=== PATIENT | male | born 1970 | race Caucasian/White ===

== ENCOUNTER 2018-03-03 16:31 | Emergency (ER) | payer BC ==
[~2018-03-03] VITALS: Ht 185.4 cm; Wt 108.9 kg
[~2018-03-03 16:31] MED LIST: NOHOMEMEDICATIONS; PERCOCET 5-3251 EACH PO; TAMSULOSIN HCL0.4 MG PO; ZOFRAN 4 MG ORAL4 MG PO
[2018-03-03] MEDS ORDERED: ASPIR 8181 MG PO (16:48)
[2018-03-03] MEDS ORDERED: ATORVASTATIN CA20 MG PO (16:48)
[2018-03-03] MEDS ORDERED: BYSTOLIC2.5 MG PO (16:48)
[2018-03-03 17:10] LABS: ABSOLUTE BASOPHILS 0.1 thou/uL (0.0-0.2); ABSOLUTE EOSINOPHILS 0.6 thou/uL (0.0-0.7); ABSOLUTE LYMPHOCYTES 2.2 thou/uL (0.8-5.3); ABSOLUTE MONOCYTES 0.6 thou/uL (0.0-1.2); ABSOLUTE NEUTROPHILS 5.2 thou/uL (1.6-8.1); BASOPHILS 0.9 %; HEMATOCRIT 44.5 % (42.0-52.0); LYMPHOCYTES 25.2 %; MCH 31.7 pg (26.0-34.0); MCHC 33.6 g/dL (28.0-37.0); MCV 94.3 fL (80.0-100.0); MONOCYTES 7.3 %; MPV 8.8 fl. (7.2-11.1); NUCLEATED RBCS 0 /100WBC; PLATELET COUNT* 245 thou/uL (150-400); POLYS 59.6 %; RBC 4.72 mil/uL (4.50-6.00); RDW-CV 12.9 % (10.5-14.5); WBC 8.8 thou/uL (4.0-11.0)
[2018-03-03 17:18] LABS: CALCIUM 8.8 mg/dL (8.5-10.1); CREATININE 1.3 mg/dL (0.6-1.3); POTASSIUM 3.8 mmol/L (3.5-5.1)
[2018-03-03 17:22] LABS: ALBUMIN 4.1 g/dL (3.4-5.0); TOTAL BILIRUBIN 0.3 mg/dL (<0.1-1.0); TOTAL PROTEIN 7.8 g/dL (6.4-8.2)
[2018-03-03 18:38] LABS: URINE BILIRUBIN NEGATIVE (Negative); URINE BLOOD 3+ (Negative); URINE CLARITY CLEAR; URINE COLOR YELLOW; URINE GLUCOSE-RANDOM NEGATIVE (Negative); URINE KETONES NEGATIVE (Negative); URINE LEUKOCYTES NEGATIVE (Negative); URINE NITRITE NEGATIVE (Negative); URINE PROTEIN NEGATIVE (Negative); URINE UROBILINOGEN 0.2 E.U./dl (0.2-1.0)
[2018-03-03 18:48] LABS: CRYSTALS None Seen /LPF (None Seen); MUCUS None Seen strn/LPF (None Seen); SQUAMOUS NONE SEEN /LPF (0-3); URINE WBC 0-5 Rare /HPF (0-5)
[2018-03-03 18:49] LABS: BACTERIA None Seen /HPF (None Seen); CASTS None Seen /LPF (None Seen)
[2018-03-03] MEDS ORDERED: NORCO 5-325 TA1 EACH PO (19:30)
[2018-03-03] MEDS ORDERED: FLOMAX0.4 MG PO (19:30)
[2018-03-03] MEDS ORDERED: IBUPROFEN 800800 M1 PO (19:30)
[2018-03-03] MEDS ORDERED: ONDANSETRON HCL4 M2 PO (19:30)
[2018-03-03 19:43] VITALS: BP 121/75
== END 2018-03-03 19:44 | disposition home or self-care (01) ==
LOC: M.ERS 16:31
PROVIDERS: Nurse Practitioner Family
DX: N13.2 Hydronephrosis with renal and ureteral calculous obstruction (principal); Z87.442 Personal history of urinary calculi; E78.00 Pure hypercholesterolemia, unspecified

== ENCOUNTER 2018-03-06 05:29 | Inpatient (IN) | payer BC ==
[~2018-03-06] VITALS: Ht 185.4 cm; Wt 108.9 kg
[~2018-03-06 05:29] MED LIST changes: +ASPIR 8181 MG PO; +ATORVASTATIN CA20 MG PO; +BYSTOLIC2.5 MG PO; +FLOMAX0.4 MG PO; +IBUPROFEN 800800 M1 PO; +NORCO 5-325 TA1 EACH PO; +ONDANSETRON HCL4 M2 PO
[2018-03-06 05:33] VITALS: BP 170/100
[2018-03-06 05:55] LABS: ABSOLUTE BASOPHILS 0.1 thou/uL (0.0-0.2); ABSOLUTE EOSINOPHILS 0.3 thou/uL (0.0-0.7); ABSOLUTE LYMPHOCYTES 2.2 thou/uL (0.8-5.3); ABSOLUTE MONOCYTES 1.6 thou/uL (0.0-1.2); ABSOLUTE NEUTROPHILS 10.4 thou/uL (1.6-8.1); BASOPHILS 0.7 %; EOSINOPHILS 2.4 %; HEMATOCRIT 38.9 % (42.0-52.0); HEMOGLOBIN 13.3 gm/dL (14.0-18.0); LYMPHOCYTES 14.9 %; MCH 31.5 pg (26.0-34.0); MCHC 34.1 g/dL (28.0-37.0); MCV 92.6 fL (80.0-100.0); MONOCYTES 11.1 %; MPV 9.1 fl. (7.2-11.1); NUCLEATED RBCS 0 /100WBC; PLATELET COUNT* 219 thou/uL (150-400); POLYS 70.9 %; RDW-CV 12.8 % (10.5-14.5); WBC 14.6 thou/uL (4.0-11.0)
[2018-03-06 06:07] LABS: CALCIUM 8.5 mg/dL (8.5-10.1); CREATININE 1.8 mg/dL (0.6-1.3); POTASSIUM 4.2 mmol/L (3.5-5.1)
[2018-03-06 06:08] LABS: URINE BILIRUBIN NEGATIVE (Negative); URINE BLOOD 1+ (Negative); URINE CLARITY CLEAR; URINE COLOR YELLOW; URINE GLUCOSE-RANDOM NEGATIVE (Negative); URINE KETONES NEGATIVE (Negative); URINE LEUKOCYTES-REFLEX NEGATIVE (Negative); URINE NITRITE-REFLEX NEGATIVE (Negative); URINE PROTEIN NEGATIVE (Negative); URINE UROBILINOGEN 0.2 E.U./dl (0.2-1.0)
[2018-03-06 06:11] LABS: ALBUMIN 3.7 g/dL (3.4-5.0); TOTAL BILIRUBIN 0.4 mg/dL (<0.1-1.0); TOTAL PROTEIN 7.5 g/dL (6.4-8.2)
[2018-03-06 06:23] LABS: BACTERIA-REFLEX None Seen /HPF (None Seen); CASTS None Seen /LPF (None Seen); CRYSTALS None Seen /LPF (None Seen); MUCUS None Seen strn/LPF (None Seen); SQUAMOUS NONE SEEN /LPF (0-3); URINE RBC 0-2 Rare /HPF (0-2); URINE WBC-REFLEX None Seen /HPF (0-5)
--- NOTE | 2018-03-06 06:36 | NUR ---
PATIENT PACING, STATES THAT IT HELPS TO MOVE AROUND.
[2018-03-06 08:35] VITALS: BP 144/80
[2018-03-06 09:00] VITALS: BP 136/72
[2018-03-06 16:03] VITALS: BP 137/80
--- NOTE | 2018-03-06 16:17 | NUR ---
PATIENT REMAINS ALERT AND ORIENTED. PAIN CONTROLLED WITH PO/IV MEDS. RATES PAIN 2/10. DENIES NAUSEA. TOLERTING DIET. STRAINING URINE. UP AD BARBARA. NPO AFTER MIDINGHT FOR CYSTO TOMORROW. IVF INFUSING ORDERED. CALL LIGHT WITHIN REACH. WILL CONTINUE TO MONITOR.
--- NOTE | 2018-03-06 16:35 | NUR ---
PER DR. CABRERA PATIENT IS MEDICALLY CLEAR FOR SURGERY TOMORROW.
[2018-03-07] VITALS: BP 159/94
[2018-03-07 00:32] VITALS: BP 159/94
[2018-03-07 03:44] LABS: HEMATOCRIT 32.7 % (42.0-52.0); MCH 31.9 pg (26.0-34.0); MCHC 34.3 g/dL (28.0-37.0); MPV 9.8 fl. (7.2-11.1); RBC 3.52 mil/uL (4.50-6.00); RDW-CV 12.4 % (10.5-14.5); WBC 11.8 thou/uL (4.0-11.0)
[2018-03-07 03:46] LABS: CREATININE 1.7 mg/dL (0.6-1.3); MAGNESIUM 1.9 mg/dL (1.8-2.4); POTASSIUM 4.2 mmol/L (3.5-5.1)
[2018-03-07 03:48] LABS: HEMOGLOBIN 11.2 gm/dL (14.0-18.0)
--- NOTE | 2018-03-07 04:50 | NUR ---
PATIENT HAS REMAINED ALERT AND ORIENTED X 4 THROUGHOUT THE SHIFT AND RESTING QUIETLY ON HOURLY ROUNDS. PATIENT STRAINING URINE. NO STONES RETRIEVED OF THIS WRITING. NPO AT MIDNIGHT. MEDICATED FOR PAIN WITH BOTH ORAL AND IV OPTIONS UTILIZED TO GOOD EFFECT. VITAL SIGNS STABLE. MEDS/IVF'S/ANTIBIOTICS PER ORDERS. PATIENT AWARE OF POSSIBLE PROCEDURE THIS AM. CONTINUE TO MONITOR.
[2018-03-07 07:40] VITALS: BP 144/64
--- NOTE | 2018-03-07 07:42 | NUR ---
pt transferred to preop at this time
[2018-03-07] MEDS ORDERED: HYDROCODONE-AP1 EAC6 PO (10:00)
[2018-03-07] MEDS ORDERED: LEVSIN0.125 MG SUBLING (10:01)
[2018-03-07 10:02] VITALS: BP 158/94
[2018-03-07] MEDS ORDERED: PHENAZOPYRIDIN200 M2 PO (10:02)
--- NOTE | 2018-03-07 10:02 | NUR ---
PATIENT RETURNED FROM PACU AT THIS TIME. ALERT AND ORIENTED. DENIES PAIN. VOIDED PER URINAL. TOLERATED LIQUIDS. SCD'S IN PLACE. VITALS CHARTED. AT BEDSIDE. WILL CONTINUE TO MONITOR.
[2018-03-07 12:59] VITALS: BP 158/94
--- NOTE | 2018-03-07 13:10 | NUR ---
PATIENT DISCHARED TO HOME AT THIS TIME. IV REMOVED. STRAINER AND URINAL SENT WITH PATIENT. PYRIDIUM USED FOR PAINFUL URINATION. PATIENT ABLE TO VOID 600MLS OF PINK URINE PRIOR TO DC. PATIENT AND SPOUSE VERBALIZE UNDERSTANDING OF DC INSTRUCTIONS.
--- NOTE | 2018-03-07 13:25 | EKG ---
[place] [address] ELECTROCARDIOGRAM REPORT Name: MARY HAND Room: [address] IN M.R.#: [id number] Admission: 03/06/18 Attend Phys: Albaro Styles MD Discharge: 03/07/18 Date of : 66 Report #: [id number] THIS REPORT FOR: //name// [facility] Test Date: 2018-03-06 Test Time: 17:08:34 Pat Name: MARY HAND Department: Room: [address] Gender: M [employer] Consultant: : [id number] Requested By: Leela Kam Order Number: [id number] MD: Nick Piper Measurements Intervals [place] Rate: 69 P: 60 MD: 213 QRS: -27 QRSD: 87 T: 8 QT: 389 QTc: 417 Interpretive Statements Sinus rhythm Prolonged MD interval Inferior infarct, old No previous ECG available for comparison Electronically Signed On 03-07-2018 13:25:25 CDT by Nick Piper [email or web address] <ELECTRONICALLY SIGNED> By: Nick Piper MD, [facility] 03/07/18 1325 07 07 Nick Piper MD, FACC /EPI
--- NOTE | 2018-03-11 15:49 | OP ---
[address] [address] OPERATIVE REPORT Name: MARY HAND Room: [address] IN M.R.#: [id number] Admission: 03/06/18 Attend Phys: Albaro Styles MD Discharge: 03/07/18 Date of : 66 Report #: [id number] THIS REPORT FOR: //name// CC: [facility] MANDO AQUINOSIMONE Styles DATE OF SERVICE: 03/07/2018 PREOPERATIVE DIAGNOSIS: Right ureteral stone. POSTOPERATIVE DIAGNOSIS: Right ureteral stone. PROCEDURE: Cystourethroscopy, right retrograde pyelogram, right ureteroscopy and right ureteral stent placement (6-Yemeni x 26 cm). SURGEON: Leela Kam MD ANESTHESIA: General. ESTIMATED BLOOD LOSS: None. COMPLICATIONS: None. SPECIMENS: None. INDICATIONS FOR PROCEDURE: The patient is a 47-year-old male who presented with a 5 mm right ureteral stone. This is his second ER visit. He was also noted to have some acute kidney injury with a creatinine of 1.8. His creatinine is only improved to 1.7. He continues to have pain. We proceed with intervention given this is his second ER visit in his renal dysfunction. Risks of procedure were discussed including but not limited to infection, bleeding, injury to the urethra, bladder, ureters, need for secondary procedures, stent pain, cardiopulmonary complications. He voiced understanding and wished to proceed. DESCRIPTION OF PROCEDURE: After informed consent was obtained, the patient was taken back to the operating suite and placed supine. After induction of general anesthesia, he was placed in dorsal lithotomy position, genitalia prepped and draped in standard fashion. Rigid cystoscopy was performed. Urethra was normal, no strictures. Prostate had some bilobar hyperplasia but there was no coaptation and no obstruction. Bladder was carefully inspected. There were no mucosal lesions or erythema. Ureteral orifices were orthotopic in position. Retrograde was performed on the right with a cone tipped catheter. This revealed a filling defect in the mid ureter consistent with the known stone. Threaded a sensor wire up into the kidney past the stone with only minor difficulty. Retrograde was again performed with a dual lumen catheter, [place] [address] OPERATIVE REPORT Name: MARY HAND Room: [address]#: [id number] Admission: 03/06/18 Attend Phys: Albaro Styles MD Discharge: 03/07/18 Date of : 66 Report #: [id number] confirming placement of the wire. The stone was low enough. I thought I could potentially reach it with the rigid ureteroscope. Therefore, the distal ureter was dilated with the 09/21 ureteral access sheath; however, this would not pass the level of the pelvic outlet due to some narrowing. The rigid ureteroscope was advanced up into the ureter, but it would not reach the stone. Therefore, a second wire was placed and this was backed out. The 09/21 sheath was threaded over one of the wires, but again would not thread past the level of the pelvic outlet due to ureteral narrowing. The sheath was left in place in the distal ureter. Flexible ureteroscope was advanced up into the ureter. I could not reach the stone due to a stricture that was just below the level of the stone. Retrograde was performed through the scope and this confirmed that. The stone was just beyond my reach beyond that area of stricture. Therefore, decided the best thing would be to place a stent and come back. The scope was backed out along with the sheath. There was no injury from the sheath. The wire was backloaded through the cystoscope and a 6-Yemeni x 26-cm double-J stent was threaded over the wire. The proximal curl was initially in the upper pole, but this was adjusted in the renal pelvis using flexible graspers distally and good placement of the stent was seen at the end of the case. I should also note that initially when the wire was placed there was no purulence, but he did have quite a bit of debris and what looked like old blood product effluxing due to his obstruction. The bladder was then drained and the scope was removed. A 5 mL of lidocaine jelly were placed per urethra for local anesthesia. A 60 mg B and O suppository was placed per rectum for postoperative discomfort. He was awoken, extubated and taken to recovery in satisfactory condition. He will be admitted back to the floor and will plan on a second look ureteroscopy in a week or two after he is dilated with the stent. <ELECTRONICALLY SIGNED> By: Leela Kam MD 03/11/18 1549 0915 [id number] Kam MD /nt
== END 2018-03-07 13:17 | disposition home or self-care (01) | DRG 693 ==
LOC: M.ERS 05:29 → M.TBA-ER 06:40 → M.ORTHSURG 08:30
PROVIDERS: Family Medicine; ADMIT Internal Medicine
PROC: 0T768DZ Dilation of Right Ureter with Intraluminal Device, Via Natural or Artificial Opening Endoscopic (ICD-10-PCS; principal; 2018-03-07)
PROC: BT1D1ZZ Fluoroscopy of Right Kidney, Ureter and Bladder using Low Osmolar Contrast (ICD-10-PCS; principal; 2018-03-07)
DX: N20.1 Calculus of ureter (principal); N17.0 Acute kidney failure with tubular necrosis; E78.00 Pure hypercholesterolemia, unspecified; I25.10 Atherosclerotic heart disease of native coronary artery without angina pectoris; F17.200 Nicotine dependence, unspecified, uncomplicated; I25.2 Old myocardial infarction; Z95.5 Presence of coronary angioplasty implant and graft; Z79.899 Other long term (current) drug therapy; Z79.82 Long term (current) use of aspirin

== ENCOUNTER 2020-03-31 07:53 | Emergency (ER) | payer BC ==
[~2020-03-31] VITALS: Ht 185.4 cm; Wt 106.6 kg
[~2020-03-31 07:53] MED LIST changes: +HYDROCODONE-AP1 EAC6 PO; +LEVSIN0.125 MG SUBLING; +PHENAZOPYRIDIN200 M2 PO
[2020-03-31 08:25] LABS: ABSOLUTE BASOPHILS 0.1 thou/uL (0.0-0.2); ABSOLUTE EOSINOPHILS 0.9 thou/uL (0.0-0.7); ABSOLUTE LYMPHOCYTES 3.5 thou/uL (0.8-5.3); ABSOLUTE MONOCYTES 0.8 thou/uL (0.0-1.2); BASOPHILS 0.8 %; EOSINOPHILS 9.3 %; HEMATOCRIT 42.4 % (42.0-52.0); HEMOGLOBIN 14.8 gm/dL (14.0-18.0); LYMPHOCYTES 38.3 %; MCH 32.7 pg (26.0-34.0); MCV 93.2 fL (80.0-100.0); MONOCYTES 8.4 %; MPV 8.8 fl. (7.2-11.1); NUCLEATED RBCS 0 /100WBC; PLATELET COUNT* 251 thou/uL (150-400); POLYS 43.2 %; RBC 4.54 mil/uL (4.50-6.00); RDW-CV 12.5 % (10.5-14.5); WBC 9.2 thou/uL (4.0-11.0)
[2020-03-31 08:36] LABS: CALCIUM 8.3 mg/dL (8.5-10.1); CREATININE 1.1 mg/dL (0.6-1.3); POTASSIUM 3.7 mmol/L (3.5-5.1)
[2020-03-31 08:40] LABS: ALBUMIN 3.8 g/dL (3.4-5.0); TOTAL BILIRUBIN 0.4 mg/dL (<0.1-1.0); TOTAL PROTEIN 7.2 g/dL (6.4-8.2)
[2020-03-31] MEDS ORDERED: FLOMAX0.4 MG PO (09:26)
[2020-03-31] MEDS ORDERED: ZOFRAN ODT4 MG DISSOLVE (09:26)
[2020-03-31] MEDS ORDERED: NORCO 5-325 TA1 EAC1 PO (09:26)
[2020-03-31] MEDS ORDERED: IBUPROFEN 800800 M1 PO (09:26)
[2020-03-31 09:56] LABS: URINE BILIRUBIN NEGATIVE (Negative); URINE BLOOD 3+ (Negative); URINE CLARITY CLEAR; URINE COLOR YELLOW; URINE GLUCOSE-RANDOM NEGATIVE (Negative); URINE KETONES NEGATIVE (Negative); URINE LEUKOCYTES-REFLEX NEGATIVE (Negative); URINE NITRITE-REFLEX NEGATIVE (Negative); URINE PROTEIN 1+ (Negative); URINE SPECIFIC GRAVITY >= 1.030 (1.005-1.030); URINE UROBILINOGEN 0.2 E.U./dl (0.2-1.0)
[2020-03-31 10:12] LABS: SQUAMOUS 0-3 Few /LPF (0-3); URINE RBC >20 Many /HPF (0-2); URINE WBC-REFLEX None Seen /HPF (0-5)
[2020-03-31 10:16] LABS: BACTERIA-REFLEX None Seen /HPF (None Seen); CASTS None Seen /LPF (None Seen); CRYSTALS None Seen /LPF (None Seen); MUCUS >6 Heavy strn/LPF (None Seen)
[2020-03-31 10:31] VITALS: BP 124/81
== END 2020-03-31 10:32 | disposition home or self-care (01) ==
LOC: M.ERS 07:53
PROVIDERS: Emergency Medicine Emergency Medical Services
DX: N20.0 Calculus of kidney (principal); R11.2 Nausea with vomiting, unspecified; E78.00 Pure hypercholesterolemia, unspecified; I25.10 Atherosclerotic heart disease of native coronary artery without angina pectoris

== ENCOUNTER 2021-09-19 05:46 | Emergency (ER) | payer BC ==
[~2021-09-19] VITALS: Ht 185.4 cm; Wt 113.4 kg
[~2021-09-19 05:46] MED LIST changes: +NORCO 5-325 TA1 EAC1 PO; +ZOFRAN ODT4 MG DISSOLVE
[2021-09-19 06:14] LABS: HEMATOCRIT 41.3 % (42.0-52.0); HEMOGLOBIN 14.2 gm/dL (14.0-18.0); MCH 31.9 pg (26.0-34.0); MCHC 34.4 g/dL (28.0-37.0); MCV 92.6 fL (80.0-100.0); MPV 9.1 fl. (7.2-11.1); RBC 4.46 mil/uL (4.50-6.00); RDW-CV 13.2 % (10.5-14.5); WBC 9.8 thou/uL (4.0-11.0)
[2021-09-19 06:22] LABS: CALCIUM 8.9 mg/dL (8.5-10.1); CREATININE 1.2 mg/dL (0.6-1.3); POTASSIUM 3.9 mmol/L (3.5-5.1)
[2021-09-19 06:27] LABS: ALBUMIN 3.8 g/dL (3.4-5.0); TOTAL BILIRUBIN 0.4 mg/dL (<0.1-1.0); TOTAL PROTEIN 7.5 g/dL (6.4-8.2)
[2021-09-19 07:54] LABS: URINE BILIRUBIN NEGATIVE (Negative); URINE BLOOD NEGATIVE (Negative); URINE CLARITY CLEAR; URINE COLOR YELLOW; URINE GLUCOSE-RANDOM NEGATIVE (Negative); URINE KETONES NEGATIVE (Negative); URINE LEUKOCYTES-REFLEX NEGATIVE (Negative); URINE NITRITE-REFLEX NEGATIVE (Negative); URINE PROTEIN NEGATIVE (Negative); URINE SPECIFIC GRAVITY >= 1.030 (1.005-1.030); URINE UROBILINOGEN 0.2 E.U./dl (0.2-1.0)
[2021-09-19] MEDS ORDERED: IBUPROFEN 800800 M1 PO (08:09)
[2021-09-19] MEDS ORDERED: FLOMAX0.4 MG PO (08:09)
[2021-09-19] MEDS ORDERED: ZOFRAN ODT4 MG DISSOLVE (08:09)
[2021-09-19] MEDS ORDERED: HYDROCODON-ACE1 EAC7 PO (08:09)
[2021-09-19 08:30] VITALS: BP 160/94
== END 2021-09-19 08:31 | disposition home or self-care (01) ==
LOC: M.ERS 05:46
PROVIDERS: Personal Emergency Response Attendant
DX: N23 Unspecified renal colic (principal); E78.00 Pure hypercholesterolemia, unspecified; Z79.82 Long term (current) use of aspirin; Z79.899 Other long term (current) drug therapy